=== PATIENT | female | born 1970 | race Caucasian/White ===

== ENCOUNTER 2017-06-12 01:12 | Emergency (ER) | payer OTHER ==
[~2017-06-12] VITALS: Ht 160 cm; Wt 66.0 kg
[2017-06-12 01:24] VITALS: Ht 160 cm; Wt 66.0 kg
[2017-06-12] MEDS ORDERED: ALBUTEROL 0.083% (NEB) 2.5 MG/3 ML AMP NEB STA (04:00)
--- NOTE | 2017-06-12 05:00 | RADRPT ---
PROCEDURE: XR Chest. CLINICAL INDICATION: Shortness of breath, cough TECHNIQUE: AP Portable chest. COMPARISON: No pertinent prior examinations were submitted for comparison. FINDINGS: The cardiomediastinal silhouette is normal. The aorta is normal. No focal consolidation, pleural eff usion or pneumothorax is seen. The osseous structures are intact. IMPRESSION: No radiographic evidence of acute cardiopulmonary disease. Physician Christos Date Time Electronically viewed and signed by Sybil Palma Physician on 06/12/2017 05:00 CS/
--- NOTE | 2017-06-12 05:05 | ERD ---
ER Documentation Chief Complaint Date/Time DATE: 06/12/17 TIME: 05:05 Chief Complaint c/o cough x1 week, accompanied with headache and sob HPI 47-year-old otherwise healthy female presents to the emergency department for complaints of a productive cough 3 weeks. Patient states that the cough has gradually worsened and she is now experiencing subjective fever and chills at home. She denies sore throat, ear pain, congestion, abdominal pain, dysuria, hematuria, nausea, vomiting or diarrhea. She is attempted to treat her symptoms at home with Tylenol without significant relief. She denies history of asthma, COPD or other lung disease. She denies chest pain, shortness of breath, calf swelling, recent surgery, prolonged immobilization, or cardiac history. ROS All systems reviewed and are negative except as per history of present illness. Medications Home Meds Active Scripts Albuterol Sulfate* (Proair HFA*) 8.5 Gm Hfa.aer.ad, 2 PUFF INH Q4, #1 INHALER Prov:WALE PECK PA-C 06/12/17 Dextromethorphan Hb-Promethazine Hcl (Promethazine DM Syrup) 473 Ml Syrup, 5 ML PO Q6H Y for COUGH, #4 OZ Prov:WALE PECK PA-C 06/12/17 Azithromycin* (Zithromax*) 250 Mg Tablet, 250 MG PO .ZPACK DIRECTED, #6 TAB TAKE 500 MG (2 TABS) THE FIRST DAY THEN 250 MG (1 TAB) DAYS 2-5 Prov:WALE PECK PA-C 06/12/17 PMhx/Soc History of Surgery: No Anesthesia Reaction: No Hx Neurological Disorder: No Hx Respiratory Disorders: No Hx Cardiac Disorders: No Hx Psychiatric Problems: No Hx Miscellaneous Medical Probl: No Hx Alcohol Use: No Hx Substance Use: No Hx Tobacco Use: No Smoking Status: Never smoker Physical Exam Vitals Vital Signs Date Time Temp Pulse Resp B/P Pulse Ox O2 Delivery O2 Flow Rate FiO2 06/12/17 06:17 98.7 75 20 128/77 100 Room Air 06/12/17 04:25 104 20 100 21 06/12/17 01:24 99.1 103 20 133/61 99 Physical Exam Const: Well-developed, well-nourished, in no acute distress Head: Atraumatic Eyes: Normal Conjunctiva ENT: Normal External Ears, Nose and Mouth. Neck: Full range of motion..~ No meningismus. Resp: Mild, left-sided, expiratory wheezing in the lower lung. Otherwise no rhonchi, rales bilaterally Cardio: Regular rate and rhythm, no murmurs Abd: Soft, non tender, non distended. Normal bowel sounds Skin: No petechiae or rashes Back: No midline or flank tenderness Ext: No cyanosis, or edema Neur: Awake and alert Psych: Normal Mood and Affect Results 24 hrs Current Medications Medications (Trade) Dose Ordered Sig/Johan Route PRN Reason Start Time Stop Time Status Last Admin Dose Admin Albuterol (Proventil 0.083% (Neb)) 5 mg ONCE STAT NEB 06/12/17 04:00 06/12/17 04:03 DC 06/12/17 04:25 Procedures/MDM PROCEDURE: XR Chest. CLINICAL INDICATION: Shortness of breath, cough TECHNIQUE: AP Portable chest. COMPARISON: No pertinent prior examinations were submitted for comparison. FINDINGS: The cardiomediastinal silhouette is normal. The aorta is normal. No focal consolidation, pleural effusion or pneumothorax is seen. The osseous structures are intact. IMPRESSION: No radiographic evidence of acute cardiopulmonary disease. Physician Christos Date Time Electronically viewed and signed by Physician Christos on 06/12/2017 05: 00 CS/ CC: WALE PECK PA-C This is an otherwise healthy 47-year-old female who presents the emergency department for ongoing cough 3 weeks. Upon arrival, patient well-appearing, nontoxic, afebrile and non-hypoxic. She notes intermittent fever and chills at home but denies chest pain or shortness of breath. Physical exam with evidence of mild expiratory wheezes. Chest x-ray was performed and negative for acute process. Patient received a breathing treatment while in the emergency department and reports significant improvement of symptoms. The patient's clinical presentation is consistent productive cough which is unlikely due to serious etiology including pneumonia, pneumothorax, acute coronary syndrome or pulmonary embolus. However given the patient's report of her symptoms lasting 3 weeks, I will be providing her with antibiotics as well as symptomatic relief medication. The patient does not exhibit any clinical signs or symptoms concerning for serious bacterial infection or systemic illness. Based on history and clinical exam findings the patient does not appear to have evidence of pneumonia, strep pharyngitis, urinary tract infection, bacteremia, sepsis, or meningitis. For these reasons I do not believe it is necessary to obtain laboratory testing. I believe it would be appropriate for symptom control, and close outpatient primary care follow-up. Based on patient's history of present illness and physical examination the decision was made to discharge. The patient was re-evaluated after ED treatment and stabilizing measures, and symptoms have improved. There is no evidence of life threatening injuries or illnesses at this time. On re-examination, patient resting in no distress, stable vital signs, reports feeling better and safe for discharge with outpatient follow up with PMD in 1-2 days. Patient given return precautions. WALE PECK PA-C Jun 12, 2017 05:05
[2017-06-12] MEDS ORDERED: D-ME473S18 PO (05:27)
[2017-06-12] MEDS ORDERED: AZIT250T94 PO (05:27)
[2017-06-12] MEDS ORDERED: ALBU8.5H3 INH (05:27)
[2017-06-12 06:17] VITALS: BP 128/77; PULSE 75; RESP 20; TEMP 98.7
== END 2017-06-12 06:18 | disposition home or self-care (01) ==
LOC: FTE 01:12
DX: R05 Cough (principal); R50.9 Fever, unspecified
CPT/HCPCS: 71010; 94664